=== PATIENT | female | born 1980 | race African-American/Black ===

== ENCOUNTER → 2021-04-10 | Day surgery (SDC) | payer OTHER ==
[~2021-04-10] VITALS: Ht 157.5 cm; Wt 145.4 kg
[~2021-04-10] MED LIST: AMLODIPINE-BEN1 EAC4 PO; ASPIRIN EC81 MG PO; BENAZEPRIL-HCT1 EAC1 PO; MYRBETRIQ25 MG PO
[2021-04-10 06:38] LABS: HCG (URINE) SCREEN NEGATIVE (NEGATIVE)
[2021-04-10 06:49] LABS: HCT 39.8 % (37.0-47.0); HGB 12.2 g/dl (12.5-16.0); MCH 27.2 pg (25.0-31.0); MCHC 30.7 g/dL (32.0-36.0); MCV 88.8 fL (78.0-100.0); MPV 10.8 fL (6.0-9.5); RBC 4.48 M/uL (4.20-5.40); RDW 12.1 % (11.5-14.0)
== END | disposition home or self-care (01) ==
LOC: FAS 06:01
PROVIDERS: Orthopaedic Surgery
DX: G56.03 Carpal tunnel syndrome, bilateral upper limbs (principal); Z88.5 Allergy status to narcotic agent; I10 Essential (primary) hypertension; G47.30 Sleep apnea, unspecified
CPT/HCPCS: 36415; 71045; 84703; 93005; J1100; J1885; J2250; J2405; J3010; J7120

== ENCOUNTER 2021-10-30 23:31 | Emergency (ER) | payer OTHER ==
[2021-10-31] MEDS ORDERED: PERCOCET 5-3251 EACH PO (00:15)
== END 2021-10-31 00:30 | disposition home or self-care (01) ==
LOC: FER 23:31
DX: S62.604A Fracture of unspecified phalanx of right ring finger, initial encounter for closed fracture (principal); I10 Essential (primary) hypertension; Z88.5 Allergy status to narcotic agent; W23.0XXA Caught, crushed, jammed, or pinched between moving objects, initial encounter; Y92.89 Other specified places as the place of occurrence of the external cause; Y99.0 Civilian activity done for income or pay
CPT/HCPCS: 73130